=== PATIENT | female | born 1990 | race Caucasian/White ===

== ENCOUNTER 2017-04-25 18:06 | Emergency (ER) | payer OTHER ==
[~2017-04-25 18:06] MED LIST: VALTREX
[2017-04-25 19:34] LABS: URINE SOURCE CLEAN CATCH
[2017-04-25 19:37] LABS: URINE APPEARANCE HAZY; URINE BILIRUBIN NEG (NEG); URINE BLOOD NEG (NEG); URINE COLOR YELLOW; URINE GLUCOSE NEG (NORM); URINE KETONE NEG (NEG); URINE LEUKOCYTE ESTERASE NEG (NEG); URINE NITRATE NEG (NEG); URINE PROTEIN NEG (NEG)
[2017-04-25 19:40] LABS: MICRO INDICATED? NO
[2017-04-30 11:03] LABS: CHLAMYDIA TRACH Not Detected (Not Detected); N GONOR Not Detected (Not Detected)
== END 2017-04-25 20:17 | disposition home or self-care (01) ==
LOC: SED 18:06
PROVIDERS: Nurse Practitioner Family
DX: N76.0 Acute vaginitis (principal)
CPT/HCPCS: 81003; 84703; 87210; 87491; 87591; 87808; 87905; 99283

== ENCOUNTER 2017-06-23 10:06 | Emergency (ER) | payer OTHER ==
[~2017-06-23] VITALS: Ht 160 cm; Wt 65.8 kg
--- NOTE | ~2017-06-23 | CR181 ---
[facility] A Service of [facility] RADIOLOGY TEXT RESULTS PATIENT: SUYAPA MOORE LOCATION: SED : [birth year] UNIT #: [id number] AGE: [address]: ASAEL HANLEY SEX: F ORDER DR: [id number] [place] [id number] [id number] E MR#: [id number] Acc #: [id number] NAME: SUYAPA MOORE : 1990 SEX: F STUDY DATE/TIME: 06/23/2017 11:31 UNIT: SED ROOM: STUDY DESCRIPTION: CR Lumbar Spine 2 or 3 Views Attending Physician: Asael Hanley A.P.R.N. Ordering Physician: Asael Hanley A.P.R.N. Primary Care Physician: Primary Care Physician No MEDICAL IMAGING REPORT This report is preliminary unless electronic signature is present. EXAM Lumbar spine 2-3 views HISTORY Pain in hip and side, right hip pain for 2 years. COMMENT AP, lateral, lumbosacral views lumbar spine reviewed. There is a separate study of the right hip. 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 There is mild levoconvex lumbar scoliosis. Sagittal alignment is normal. No acute fracture or bone destruction. Relative preservation of intervertebral disc heights noted. IMPRESSION 1. Patient has mild levoconvex lumbar scoliosis. 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 No acute abnormality appreciated. Dictated by... Pavithra Álvarez M.D. THIS IS AN ELECTRONICALLY VERIFIED REPORT Pavithra Álvarez M.D. at 06/24/2017 4:52 PM [facility]/psc TD: 06/24/2017 01:46 [facility] A Service [facility] RADIOLOGY TEXT RESULTS PATIENT: SUYAPA MOORE LOCATION: SED : 90 UNIT #: [id number] AGE: [address]: ASAEL HANLEY SEX: F ORDER DR: JAVY #: [id number] MEDICAL IMAGING REPORT Page 1 of 1
--- NOTE | ~2017-06-23 | CR151 ---
[facility]. [facility] A Service of [facility] & [facility] RADIOLOGY TEXT RESULTS PATIENT: SUYAPA MOORE LOCATION: SED : 90 UNIT #: [id number] AGE: [address]: ASAEL HANLEY SEX: F ORDER DR: [id number] [place] [id number] E MR#: [id number] Acc #: [id number] NAME: SUYAPA MOORE : 1990 SEX: F STUDY DATE/TIME: 06/23/2017 11:31 UNIT: SED ROOM: STUDY DESCRIPTION: CR Hip Min 2 Views Rt Attending Physician: Asael Hanley A.P.R.N. Ordering Physician: Asael Hanley A.P.R.N. Primary Care Physician: Primary Care Physician No MEDICAL IMAGING REPORT This report is preliminary unless electronic signature is present. EXAM Right hip HISTORY Right hip pain for 2 years. COMMENT Frontal view of the pelvis and a frog-leg view of the right hip reviewed. No previous. See separate lumbar spine dictation. No acute fracture, dislocation or radiopaque foreign body. Lower sacrum is obscured by overlying bowel gas and stool. IMPRESSION Negative plain film assessment right hip and pelvis. See lumbar spine dictation. Dictated by... Pavithra Álvarez M.D. THIS IS AN ELECTRONICALLY VERIFIED REPORT Pavithra Álvarez M.D. at 06/24/2017 4:52 PM [facility]/psc TD: 06/24/2017 01:50 JOB #: [id number] MEDICAL IMAGING REPORT Page 1 of 1
[2017-06-23] MEDS ORDERED: NO MEDICATIONS (10:22)
== END 2017-06-23 12:15 | disposition home or self-care (01) ==
LOC: SED 10:06
DX: M54.5 Low back pain (principal); G89.29 Other chronic pain
CPT/HCPCS: 72100; 73502; 84703; 99284